=== PATIENT | male | born 1980 | race Caucasian/White ===

== ENCOUNTER 2018-11-22 03:37 | Emergency (ER) | payer SELFPAY ==
--- NOTE | 2018-11-27 10:48 | EKG ---
Test Reason : CP Blood Pressure : / mmHG Vent. Rate : 071 BPM Atrial Rate : 071 BPM P-R Int : 146 ms QRS Dur : 088 ms QT Int : 380 ms P-R-T Axes : 041 086 036 degrees QTc Int : 412 ms Normal sinus rhythm Normal ECG Confirmed by STEVEN FRANCISCO, LEELA Olivia ([id number]), script editor ALANNAH HUSSEIN ([id number]) on 11/27/2018 10:48:00 AM Referred By: STEVEN Confirmed By:LEELA HARRIS MD
== END 2018-11-22 04:16 ==
LOC: ERS 03:37
DX: F41.9 Anxiety disorder, unspecified (principal); L03.114 Cellulitis of left upper limb
CPT/HCPCS: 93005

== ENCOUNTER 2019-09-25 07:55 | Emergency (ER) | payer SELFPAY ==
[2019-09-25] MEDS ORDERED: Lorazepam 2 MG/ML VIAL ONE (08:28)
--- NOTE | 2019-09-25 08:35 | RAD ---
XR Chest 1 View Portable History: Altered mental status Comparison: Radiograph 2012 Findings: Pulmonary arteries are mildly dilated. No confluent airspace consolidation, pneumothorax or effusion. Cardiac silhouette is similar. No acute osseous abnormality. Impression: No acute intrathoracic abnormality.
--- NOTE | 2019-09-25 08:35 | RAD ---
XR Ankle Rt 3 View STANDARD History: Injury Comparison: None. Findings: No acute displaced fracture or malalignment. No lateral talar shift. Fifth metatarsal proxi mal tuberosity is intact. Impression: No acute osseous abnormality.
[2019-09-25 09:18] LABS: #Basophils 0.1 thou/uL (0.0-0.2); #Eosinphils 0.2 thou/uL (0.0-0.7); #Lymphocytes 1.3 thou/uL (1.20-3.40); #Monocytes 0.6 thou/uL (0.11-0.59); #Neutrophils 4.6 thou/uL (1.40-6.50); %Eosinophils 2.2 % (0.0-10.0); %Lymphocytes 19.3 % (21.0-51.0); %Monocytes 8.3 % (0.0-10.0); %Neutrophils 69.1 % (42.0-75.0); Hemoglobin 12.8 g/dL (14.0-18.0); Mean Corpuscular HGB CONC 34.6 g/dL (32.0-36.0); Mean Corpuscular Hemoglobin 33.9 pg (27.0-31.0); Mean Corpuscular Volume 98.2 fL (78.0-98.0); Mean Platelet Volume 7.8 fL (7.4-10.4); Platelet Count 192 thou/uL (130-400); RBC Distribution Width 11.3 % (11.5-14.5); Red Blood Cell (RBC) Count 3.77 mill/uL (4.70-6.10); White Blood Cell (WBC) Count 6.7 thou/uL (4.8-10.8)
[2019-09-25 09:42] LABS: ALT (SGPT) 13 U/L (8-55); AST (SGOT) 16 U/L (5-34); Acetaminophen Less than 6.0 mcg/mL (10.0-30.0); Alcohol Less than 10 mg/dL (Less than 10); Alkaline Phosphatase 85 U/L (40-110); Anion Gap 14 mmol/L (10-20); BUN (Urea Nitrogen) 13 mg/dL (8.9-20.6); Bilirubin, Total 2.7 mg/dL (0.2-1.2); CK (CPK) 227 U/L (30-200); Calc. Creatinine Clearance 0 mL/min (70-130); Calcium 8.5 mg/dL (7.8-10.44); Carbon Dioxide 24 mmol/L (22-29); Chloride 105 mmol/L (98-107); Estimated GFR-MDRD Greater than 90; Globulin 2.6 g/dL (2.4-3.5); Glucose 94 mg/dL (70-105); Potassium 3.2 mmol/L (3.5-5.1); Protein, Total 6.6 g/dL (6.0-8.3); Salicylate Less than 8.0 mg/dL (15.0-30.0); Sodium 140 mmol/L (136-145)
[2019-09-25] MEDS ORDERED: Haloperidol Lactate 5 MG/ML VIAL ONE (10:59)
--- NOTE | 2019-09-25 11:42 | CT ---
CT BRAIN: Date: 09/25/2019 PROVIDED CLINICAL HISTORY: Altered mental status. FINDINGS: Comparison made with study dated 09/25/2019. The ventricular system appears normal in size and morphology. There is no evidence for intracranial h emorrhage or mass effect. The extracranial soft tissues and osseous structures demonstrate an unremar kable CT appearance. IMPRESSION: No evidence for intracranial hemorrhage or mass effect. POS: [facility]
[2019-09-25 13:55] LABS: Bilirubin Negative (Negative); Blood, Urine Negative (Negative); Clarity Clear (Clear); Glucose, Urine (Dipstick) Normal (Negative); Ketone, Urine 60 mg/dL (Negative); Leukocyte Negative Leu/uL (Negative); Nitrite Negative (Negative); Protein, Urine (Dipstick) Negative (Neg-Trace); Specific Gravity, Urine 1.024 (1.002-1.036); Urobilinogen Normal mg/dL (Less than 2)
[2019-09-25 14:04] LABS: Amphetamine Detected (NotDetected); Barbiturates Screen Not Detected (NotDetected); Benzodiazepine Screen Detected (NotDetected); Cocaine Metabolite Screen Not Detected (NotDetected); Medtox Control Line Valid? VALID (VALID); Medtox Reader # READER 4; Methadone Not Detected (NotDetected); Methamphetamine Detected (NotDetected); Opiate Screen Not Detected (NotDetected); Oxycodone Screen Not Detected (NotDetected); Phencyclidine (PCP) Not Detected (NotDetected); THC/Cannabinoid Screen Not Detected (NotDetected); Tricyclic Screen Not Detected (NotDetected)
== END 2019-09-25 17:36 | disposition home or self-care (01) ==
LOC: ERS 07:55
DX: S93.401A Sprain of unspecified ligament of right ankle, initial encounter (principal); F41.9 Anxiety disorder, unspecified; E11.9 Type 2 diabetes mellitus without complications; F15.10 Other stimulant abuse, uncomplicated; Z87.891 Personal history of nicotine dependence; X58.XXXA Exposure to other specified factors, initial encounter
CPT/HCPCS: 36415; 70450; 71045; 80053; 80306; 80307; 81003; 82550; 84443; 84484; 85025; 87086; 93005; 96361; 96374; 96375; J1630; J2060